=== PATIENT | male | born 1950 | race Caucasian/White ===

== ENCOUNTER 2021-12-15 12:24 | Inpatient (IN) ==
--- NOTE | 2021-12-15 13:05 | XRay Report ---
XR chest 1V portable HISTORY: 71 years-old Male Chest Pain acute atypical chest pain COMPARISON: Chest radiograph 04/13/2021 TECHNIQUE: Portable AP view of the chest FINDINGS: Cardiomediastinal and hilar silhouettes are within normal limits. There is no pneumothorax, pleural e ffusion, airspace consolidation or overt pulmonary edema. The bones of the chest appear grossly intac t. IMPRESSION: No acute process. ACT 112: Negative or not required by law. The above report was generated using voice recognition software. It may contain grammatical, syntax o r spelling errors. Electronically signed by: Arcenio Haywood M.D. 12/15/2021 1:04 PM
[2021-12-15 13:43] LABS: Basophils # (auto) 0.01 K/uL (0-0.2); Basophils % (auto) 0.2 %; Hematocrit (blood only) 47.6 % (42-52); Hemoglobin 16.4 g/dL (14.0-18.0); Immature Granulocytes # (auto) 0.02 K/uL (0.00-0.02); Immature Granulocytes % (auto) 0.3 %; Lymphocytes # (auto) 1.11 K/uL (1.2-3.4); Lymphocytes % (auto) 18.4 %; Mean Corpuscular Hemoglobin 30.3 pg (25-34); Mean Corpuscular Hgb Conc 34.5 g/dL (32-36); Mean Corpuscular Volume 87.8 fL (80-100); Mean Platelet Volume 9.8 fL (7.4-10.4); Monocytes # (auto) 0.94 K/uL (0.11-0.59); Monocytes % (auto) 15.6 %; Neutrophils # (auto) 3.95 K/uL (1.4-6.5); Neutrophils % (auto) 65.5 %; Platelet Count 139 K/uL (130-400); RDW Coefficient of Variation 14.8 % (11.5-14.5); RDW Standard Deviation 47.5 fL (36.4-46.3); Red Blood Count 5.42 M/uL (4.7-6.1); White Blood Count 6.03 K/uL (4.8-10.8)
[2021-12-15] MEDS ORDERED: ALBUT/IPRATROP 3MG/0.5MG NEB 3 ML VIAL NEB STA ×2 (13:44→18:20)
[2021-12-15] MEDS ORDERED: LORazepam 2 MG/1 ML VIAL IV STA (13:44)
[2021-12-15 13:58] LABS: Partial Thromboplastin Ratio 1.6; Prothrombin Time 20.1 Seconds (9.0-12.0)
[2021-12-15 14:21] LABS: Influenza A virus by PCR Negative (Neg); Influenza B virus by PCR Negative (Neg); RSV by PCR Negative (Neg)
[2021-12-15 14:24] LABS: BUN Creatinine Ratio 20.5 (10-20); Calcium 8.8 mg/dl (8.5-10.1); Creatinine Clr Calc Pharmacy 72.1 ml/min; Est GFR (African American) 72.8 ml/min; Est GFR (Non-African American) 62.8 ml/min; Potassium 3.8 mmol/L (3.5-5.1)
--- NOTE | 2021-12-15 14:48 | Electrocardiogram Report ---
Test Reason : Blood Pressure : / mmHG Vent. Rate : 117 BPM Atrial Rate : 468 BPM P-R Int : 000 ms QRS Dur : 088 ms QT Int : 290 ms P-R-T Axes : 000 -28 049 degrees QTc Int : 404 ms Poor data quality, interpretation may be adversely affected Atrial fibrillation with rapid ventricular response Abnormal ECG When compared with ECG of 16-AUG-2021 07:14, Atrial fibrillation has replaced Sinus rhythm Vent. rate has increased BY 55 BPM Confirmed by Jose Nails ([id number]) on 12/15/2021 2:48:21 PM Referred By: Ajay Hamm Confirmed By:Jose Nails
[2021-12-15 14:53] LABS: SARS CoV2 RNA(COVID-19) InHosp POSITIVE (Negative)
--- NOTE | 2021-12-15 16:03 | Emergency Department Note ---
History of Present Illness General Chief Complaint: Illness Stated Complaint: COVID+, SOB, AFIB Time Seen by Provider: 12/15/21 12:35 History of Present Illness Provider Complaint: shortness of breath, cough and chest pain Onset (ago): day(s) (2) Severity: moderate Consistency/Duration: + progressively worsening Maximum Pain Intensity: 1 Relieved By: + rest Exacerbated By: + exertion and + coughing Context: + other (Exposed to family member with COVID-19) Associated symptoms: + chest pain, + cough, + palpitations and + chest congestion; no orthopnea, no polyuria, no hemoptysis, no diaphoresis, no nause a/vomiting or no abdominal pain Related Data Home oxygen amount: none Home Medications Medication Instructions Recorded Confirmed Type levothyroxine 112 mcg tablet 125 mcg PO QAM 10/21/18 12/15/21 History omeprazole 10 mg capsule,delayed 10 mg PO DAILY PRN 08/15/21 12/15/21 History release warfarin 5 mg tablet See Rx Instructions .ROUTE .COMPLEX 08/15/21 12/15/21 History metoprolol succinate 25 mg 25 mg PO BID 12/15/21 12/15/21 History tablet,extended release 24 hr warfarin 5 mg tablet 7.5 mg PO SUTUWETHSA@1630 12/15/21 12/15/21 History Allergies Allergy/AdvReac Type Severity Reaction Status Date / Time Xypeutu-OKX-EmQ Reductase AdvReac Intermediate Unknown Unverified 12/15/21 15:17 Inhibitor [Hyathao-Zpx-Zum Reductase Inhibitor] Past Med/Surg History Medical History Atrial fibrillation CAD (coronary artery disease) Nonobstructive per 2019 cath GERD (gastroesophageal reflux disease) H/O fracture of femur left femur fracture Hearing deficit [place], has bilat hearing aids, does not always use them Hyperlipidemia Hypothyroidism, postsurgical S/p total thyroidectomy secondary to thyroid cancer Ophthalmic migraine Surgical History H/O Achilles tendon repair H/O hand surgery H/O wrist surgery History of cardiac cath 2019, no stents History of repair of ACL History of thyroidectomy, 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 History of total knee replacement bilat TKA's; dates of surgeries unknown Family History Other Heart disease Social History Smoking Status: Former smoker Second Hand Exposure: No; Hx Alcohol Use: Yes (occasionally) Alcohol type: beer Hx Substance Use: No Preferred Language: Senegalese Communication Ability: Effective Rehanger Required: No Beliefs That Will Affect Care: None Current Living Situation: Spouse Feels Safe at Home: Yes Assistive Devices: Glasses and Hearing Aid - Bilateral Review of Systems A total of 10 systems reviewed and were otherwise negative Physical Exam Vital Signs: Vital Signs - 24 hr 12/15/21 12:27 12/15/21 13:18 12/15/21 13:22 Temperature 37 C Temperature Source Temporal Artery Sc an Pulse Rate 104 H 114 H 107 H Pulse Rate [Apical ] 107 H Pulse Rate from Sp O2 Sensor 110 H Respiratory Rate 18 19 18 Respiratory Effort / Characteristics Non-Labored Non-Labored Sponta neous Respiratory Depth Normal Normal Respiratory Patter n Regular Blood Pressure 157/100 H 139/95 Blood Pressure [Ri ght Arm] 135/95 Blood Pressure Anna n 119 109 Blood Pressure Anna n [Right Arm] 108 Blood Pressure Pos ition [Right Arm] Sitting Pulse Oximetry 96 97 95 Oxygen Delivery Me thod Room Air Room Air Sepsis Recent Feve r Within 48 Hours No Sepsis New/Unexpla ined Change in Men alessandra Status No Sepsis Action Take n by Nursing No Action Required 12/15/21 14:30 12/15/21 15:30 Temperature Temperature Source Pulse Rate 126 H 117 H Pulse Rate [Apical ] Pulse Rate from Sp O2 Sensor 109 H Respiratory Rate 16 17 Respiratory Effort / Characteristics Respiratory Depth Respiratory Patter n Blood Pressure Blood Pressure [Ri ght Arm] Blood Pressure Anna n Blood Pressure Anna n [Right Arm] Blood Pressure Pos ition [Right Arm] Pulse Oximetry 94 Oxygen Delivery Me thod Sepsis Recent Feve r Within 48 Hours Sepsis New/Unexpla ined Change in Men alessandra Status Sepsis Action Take n by Nursing Physical Exam: Physical Exam GENERAL: He is oriented to person, place, and time. He appears well-developed and well-nourished. He does not appear distressed. HENT: Exam performed. - Head: Normocephalic and atraumatic. - Right Ear: External ear normal. No mastoid tenderness. - Left Ear: External ear normal. No mastoid tenderness. - Mouth/Throat: The oropharynx is clear and moist. No trismus in the jaw. No dental abscesses or uvula swelling. No oropharyngeal exudate or tonsillar abscesses. EYES: Conjunctivae and EOM are normal. Pupils are equal, round, and reactive to light. Right eye exhibits no discharge. Left eye exhibits no discharge. No scleral icterus. NECK: Normal range of motion. Neck supple. No JVD present. No spinous process tenderness present. No carotid bruit present. No rigidity. No tracheal deviation and normal range of motion present. No Brudzinski's sign and no Kernig's sign noted. CV: Normal rate, irregular rhythm, normal heart sounds and intact distal pulses. There is no peripheral edema. Palpable radial pulses bue. PULM/CHEST: Effort normal and breath sounds normal. No respiratory distress. No stridor. He has no wheezes. He has no rales. - Chest Wall: He exhibits no tenderness. ABD: The abdomen is soft. Bowel sounds are normal. He has no distension. No mass is present. There is no tenderness. There is no rebound, no guarding, no Cox's sign and no tenderness at McBurney's point. Rovsig negative. MUSC/SKEL: Normal range of motion. There is no peripheral edema, tenderness or deformity. LYMPH: No cervical adenopathy. NEURO: He is alert and oriented to person, place, and time. He has normal strength. No cranial nerve deficit or sensory deficit. Coordination and gait normal. GCS eye subscore is 4. GCS verbal subscore is 5. GCS motor subscore is 6. Cerebellar tests wnl. SKIN: Skin is warm and dry. He is not diaphoretic. PSYCH: He has a normal mood and affect. Behavior is normal. Judgment and thought content normal. Course Course 1235: The patient was evaluated in room C9. A complete history and physical exam was performed Cardiac monitoring: An order was placed for continuous cardiac monitoring. The monitor shows a rate of 90-110 with atrial fibrilation rhythm 1345: Nursing reports patient is having increasing difficulty breathing. Patient ordered DuoNeb treatment and Ativan. 1505: Vital signs stable. Labs showed elevated troponin and positive COVID-19 test. Patient is still reporting some dyspnea. INR is therapeutic. Patient will be admitted to the [facility] team discussed case with Sheyla who stated to admit to Dr. Plummer Administered Medications Discontinued Medications Albuterol (Albut/Ipratrop 3mg/0.5mg Neb 3 Ml Vial) 3 ml NEB NOW STA; Protocol Stop: 12/15/21 13:45 Last Admin: 12/15/21 14:16 Dose: 3 ml Documented by: [id number] Lorazepam (Lorazepam 2 Mg/1 Ml Vial) 0.5 mg IV NOW STA Stop: 12/15/21 13:45 Last Admin: 12/15/21 14:16 Dose: 0.5 mg Documented by: [id number] Medical Decision Making Laboratory Data Result diagrams: 12/15/21 13:16 12/15/21 13:16 Lab Results 12/15/21 12/15/21 12/15/21 Range/Units 13:16 13:16 13:16 WBC 6.03 (4.8-10.8) K/uL RBC 5.42 (4.7-6.1) M/uL Hgb 16.4 (14.0-18.0) g/dL Hct 47.6 (42-52) % MCV 87.8 (80-100) fL MCH 30.3 (25-34) pg MCHC 34.5 (32-36) g/dL RDW Std Deviation 47.5 H (36.4-46.3) fL RDW Coeff of Tyra 14.8 H (11.5-14.5) % Plt Count 139 (130-400) K/uL MPV 9.8 (7.4-10.4) fL Immature Gran % (Auto) 0.3 % Neut % (Auto) 65.5 % Lymph % (Auto) 18.4 % [place] % (Auto) 15.6 % Eos % (Auto) 0.0 % Baso % (Auto) 0.2 % Neut # (Auto) 3.95 (1.4-6.5) K/uL Lymph # (Auto) 1.11 L (1.2-3.4) K/uL [place] # (Auto) 0.94 H (0.11-0.59) K/uL Eos # (Auto) 0.00 (0-0.5) K/uL Baso # (Auto) 0.01 (0-0.2) K/uL Immature Gran # (Auto) 0.02 (0.00-0.02) K/uL PT 20.1 H (9.0-12.0) Seconds INR 2.0 H (0.9-1.1) APTT 45.0 H (21.0-31.0) Seconds PTT Ratio 1.6 Sodium 137 (136-145) mmol/L Potassium 3.8 (3.5-5.1) mmol/L Chloride 103 (98-107) mmol/L Carbon Dioxide 25 (21-32) mmol/L Anion Gap 9 (3-11) BUN 24 H (6-23) mg/dl Creatinine 1.17 (0.6-1.4) mg/dl Est Cr Clr Drug Dosing 72.1 ml/min Est GFR ( Amer) 72.8 ml/min Est GFR (Non-Af Amer) 62.8 ml/min BUN/Creatinine Ratio 20.5 H (10-20) Glucose 90 (70-99(Fasting)) mg/dl Calcium 8.8 (8.5-10.1) mg/dl Troponin I High Sens 57.0 H* (0-20) pg/ml Lipase 53 (11-82) U/L SARS-CoV-2 (PCR) (Negative) Influenza Type A (PCR) (Neg) Influenza Type B (PCR) (Neg) RSV (RT-PCR) (Neg) 12/15/21 12/15/21 Range/Units 13:16 14:26 WBC (4.8-10.8) K/uL RBC (4.7-6.1) M/uL Hgb (14.0-18.0) g/dL Hct (42-52) % MCV (80-100) fL MCH (25-34) pg MCHC (32-36) g/dL RDW Std Deviation (36.4-46.3) fL RDW Coeff of Tyra (11.5-14.5) % Plt Count (130-400) K/uL MPV (7.4-10.4) fL Immature Gran % (Auto) % Neut % (Auto) % Lymph % (Auto) % [place] % (Auto) % Eos % (Auto) % Baso % (Auto) % Neut # (Auto) (1.4-6.5) K/uL Lymph # (Auto) (1.2-3.4) K/uL [place] # (Auto) (0.11-0.59) K/uL Eos # (Auto) (0-0.5) K/uL Baso # (Auto) (0-0.2) K/uL Immature Gran # (Auto) (0.00-0.02) K/uL PT (9.0-12.0) Seconds INR (0.9-1.1) APTT (21.0-31.0) Seconds PTT Ratio Sodium (136-145) mmol/L Potassium (3.5-5.1) mmol/L Chloride (98-107) mmol/L Carbon Dioxide (21-32) mmol/L Anion Gap (3-11) BUN (6-23) mg/dl Creatinine (0.6-1.4) mg/dl Est Cr Clr Drug Dosing ml/min Est GFR ( Amer) ml/min Est GFR (Non-Af Amer) ml/min BUN/Creatinine Ratio (10-20) Glucose (70-99(Fasting)) mg/dl Calcium (8.5-10.1) mg/dl Troponin I High Sens 56.2 H* (0-20) pg/ml Lipase (11-82) U/L SARS-CoV-2 (PCR) POSITIVE A* (Negative) Influenza Type A (PCR) Negative (Neg) Influenza Type B (PCR) Negative (Neg) RSV (RT-PCR) Negative (Neg) Imaging Data Radiologist's Impression: Chest X-Ray 12/15/21 12:41 XR chest 1V portable HISTORY: 71 years-old Male Chest Pain acute atypical chest pain COMPARISON: Chest radiograph 04/13/2021 TECHNIQUE: Portable AP view of the chest FINDINGS: Cardiomediastinal and hilar silhouettes are within normal limits. There is no pneumothorax, pleural effusion, airspace consolidation or overt pulmonary edema. The bones of the chest appear grossly intact. IMPRESSION: No acute process. ACT 112: Negative or not required by law. The above report was generated using voice recognition software. It may contain grammatical, syntax or spelling errors. Electronically signed by: Arcenio Haywood M.D. 12/15/2021 1:04 PM ECG Data Interpretation: Atrial fibrillation with a rate of 117. QRS and QTc intervals are within normal limits. No ST elevation or ST depression. MDM Narrative 1235: The patient was evaluated in room C9. A complete history and physical exam was performed Cardiac monitoring: An order was placed for continuous cardiac monitoring. The monitor shows a rate of 90-110 with atrial fibrilation rhythm 1345: Nursing reports patient is having increasing difficulty breathing. Patient ordered DuoNeb treatment and Ativan. 1505: Vital signs stable. Labs showed elevated troponin and positive COVID-19 test. Patient is still reporting some dyspnea. INR is therapeutic. Patient will be admitted to the [facility] team discussed case with Sheyla who stated to admit to Dr. Plummer Impression & Plan COVID-19, Elevated troponin Discharge Plan Visit Data Chief Complaint: Illness Stated Complaint: COVID+, SOB, AFIB Discharge Problem: COVID-19, Elevated troponin Patient Disposition: Admitted As Inpatient Forms Stand Alone Forms: [facility] Prescriptions Prescriptions: No Action levothyroxine 112 mcg tablet 125 mcg PO QAM RF: 0 metoprolol tartrate 25 mg tablet 25 mg PO BID Qty: 60 RF: 0 warfarin 5 mg Tablet See Rx Instructions .ROUTE .COMPLEX RF: 0 omeprazole 10 mg Capsule,Delayed Release(Dr/Ec) 10 mg PO DAILY PRN (Reason: Acid Reflux) RF: 0 Referrals Referrals: Ajay Hamm DO [Primary Care Provider] -
[2021-12-15] MEDS ORDERED: METOPROLOL SUCC 25MG EXT REL TAB PO STA (16:12)
--- NOTE | 2021-12-15 16:12 | History & Physical Report ---
Date of Service December 15, 2021 Assessment & Plan (1) Elevated troponin: (2) SOB (shortness of breath): (3) Atrial fibrillation: (4) COVID-19: Plan: This is a 71-year-old male who has significant past medical history of persistent atrial fibrillation anticoagulated on warfarin, HLD, hypothyroidism, GERD, CKD stage III, history of thyroid cancer, IBS, presents to ED secondary to shortness of breath, chest pain and cough x1 day. Elevated troponin SOB Atrial Fibrillation admit under obs to PCU continue metoprolol and warfarin consult cardiology defer further imaging cards, last echo 04/2021 add prn IV lopressor cycle trops COVID -19 supportive care pt does not meet criteria for treatment Hypothyroidism continue levothyroxine DVT ppx: warfarin, daily INR Dispo: PCU FULL CODE PCP: [facility] Pt was seen and examined in collaboration with Dr. Plummer, please see addendum History of Present Illness Chief Complaint: SOB, Cough, CP x 1 day. Primary Care Provider: Ajay Hamm, DO This is a 71-year-old male who has significant past medical history of persistent atrial fibrillation anticoagulated on warfarin, HLD, hypothyroidism, GERD, CKD stage III, history of thyroid cancer, IBS, presents to ED secondary to shortness of breath, chest pain and cough x1 day. Of significance he did recently have a known COVID exposure. He did have his initial 2 vaccines in October and November 2020, but no booster. He presents today due to complaints of difficult, palpitations, shortness of breath with exertion and chest pain. In ED patient did test positive for SARS-CoV-2. He did not require any supplemental oxygenation. His chest x-ray was negative for any acute cardiopulmonary abnormality. He did have elevated troponin at 56.2. His CBC and CMP was otherwise generally unremarkable. He did have mild elevation in BUN at 24 with improved creatinine than baseline at 1.17. He did not take any medications today. In ED he received albuterol nebulizer treatment as well as IV Ativan. He denies any f/c/s, dizziness, lightheaded, orthopnea, pnd, edema, n/v/d, change in bowel or urinary habits. He has been compliant with his warfarin. INR 2.0 today. He follows with [facility] cardiology was last seen on 11/01/2021. Given his persistent atrial fibrillation despite 4 attempts at cardioversion he has been referred to EP for further recommendations. His last echocardiogram per [facility] was in April 2021 which revealed EF 50%, LA mildly enlarged, mild MR, AR. There was no change from echo performed in 2019. Allergies Allergy/AdvReac Type Severity Reaction Status Date / Time Bxndqqx-UZH-YlM Reductase AdvReac Intermediate Unknown Unverified 12/15/21 15:17 Inhibitor [Gxxspah-Tib-Slp Reductase Inhibitor] Home Medications Medication Instructions Recorded Confirmed Type levothyroxine 112 mcg tablet 125 mcg PO QAM 10/21/18 12/15/21 History omeprazole 10 mg capsule,delayed 10 mg PO DAILY PRN 08/15/21 12/15/21 History release warfarin 5 mg tablet 10 mg PO MOFR@1630 08/15/21 12/15/21 History metoprolol succinate 25 mg 25 mg PO BID 12/15/21 12/15/21 History tablet,extended release 24 hr warfarin 5 mg tablet 7.5 mg PO SUTUWETHSA@1630 12/15/21 12/15/21 History Past Med/Surg History Medical History (Updated 12/15/21 @ 16:18 by Sheyla Yang PA-C) Atrial fibrillation CAD (coronary artery disease) Nonobstructive per 2019 cath GERD (gastroesophageal reflux disease) H/O fracture of femur left femur fracture Hearing deficit [place], has bilat hearing aids, does not always use them Hyperlipidemia Hypothyroidism, postsurgical S/p total thyroidectomy secondary to thyroid cancer Ophthalmic migraine Surgical History H/O Achilles tendon repair H/O hand surgery H/O wrist surgery History of cardiac cath 2019, no stents History of repair of ACL History of thyroidectomy, 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 History of total knee replacement bilat TKA's; dates of surgeries unknown Family History Other Heart disease Social History Smoking Status: Former smoker Second Hand Exposure: No; Hx Alcohol Use: Yes (occasionally) Alcohol type: beer Hx Substance Use: No Preferred Language: French Communication Ability: 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 Plummer addendum for physical exam findings Results & Data Results & Data ([facility]) Vital Signs (Past 12 Hours) Vital Signs Temp Pulse Pulse Resp BP BP Pulse Ox 12/15/21 15:30 117 H 17 94 12/15/21 14:30 126 H 16 12/15/21 13:22 107 H 107 H 18 135/95 95 12/15/21 13:18 114 H 19 139/95 97 12/15/21 12:27 37 C 104 H 18 157/100 H 96 Diagnostic Findings Chest X-Ray 12/15/21 12:41 XR chest 1V portable HISTORY: 71 years-old Male Chest Pain acute atypical chest pain COMPARISON: Chest radiograph 04/13/2021 TECHNIQUE: Portable AP view of the chest FINDINGS: Cardiomediastinal and hilar silhouettes are within normal limits. There is no pneumothorax, pleural effusion, airspace consolidation or overt pulmonary edema. The bones of the chest appear grossly intact. IMPRESSION: No acute process. ACT 112: Negative or not required by law. The above report was generated using voice recognition software. It may contain grammatical, syntax or spelling errors. Electronically signed by: Arcenio Haywood M.D. 12/15/2021 1:04 PM Medications Administered Medication List Discontinued Medications Albuterol (Albut/Ipratrop 3mg/0.5mg Neb 3 Ml Vial) 3 ml NEB NOW STA; Protocol Stop: 12/15/21 13:45 Last Admin: 12/15/21 14:16 Dose: 3 ml Documented by: [id number] Lorazepam (Lorazepam 2 Mg/1 Ml Vial) 0.5 mg IV NOW STA Stop: 12/15/21 13:45 Last Admin: 12/15/21 14:16 Dose: 0.5 mg Documented by: [id number] ECG Rate (beats per minute): 117 Rhythm: atrial fibrillation COVID-19 Results Results COVID-19 Adm Lab Results: RBC 5.42 M/uL (4.7-6.1) 12/15/21 WBC 6.03 K/uL (4.8-10.8) 12/15/21 Hgb 16.4 g/dL (14.0-18.0) 12/15/21 Hct 47.6 % (42-52) 12/15/21 Plt Count 139 K/uL (130-400) 12/15/21 Neutrophils (%) (Auto) 65.5 % 12/15/21 Lymphocytes (%) (Auto) 18.4 % 12/15/21 Monocytes # (Auto) 0.94 K/uL (0.11-0.59) H 12/15/21 Eosinophils # (Auto) 0.00 K/uL (0-0.5) 12/15/21 Immature Granulocyte % (Auto) 0.3 % 12/15/21 Neutrophils # (Auto) 3.95 K/uL (1.4-6.5) 12/15/21 Lymphocytes # (Auto) 1.11 K/uL (1.2-3.4) L 12/15/21 Monocytes # (Auto) 0.94 K/uL (0.11-0.59) H 12/15/21 Eosinophils # (Auto) 0.00 K/uL (0-0.5) 12/15/21 Basophils # (Auto) 0.01 K/uL (0-0.2) 12/15/21 Immature Granulocyte # (Auto) 0.02 K/uL (0.00-0.02) 12/15/21 Na 137 mmol/L (136-145) 12/15/21 K 3.8 mmol/L (3.5-5.1) 12/15/21 Cl 103 mmol/L (98-107) 12/15/21 CO2 25 mmol/L (21-32) 12/15/21 Anion Gap 9 (3-11) 12/15/21 BUN 24 mg/dl (6-23) H 12/15/21 Creatinine 1.17 mg/dl (0.6-1.4) 12/15/21 BUN/Creatinine Ratio 20.5 (10-20) H 12/15/21 Glucose Level 90 mg/dl (70-99(Fasting)) 12/15/21 Ca 8.8 mg/dl (8.5-10.1) 12/15/21 PTT 45.0 Seconds (21.0-31.0) H 12/15/21 INR 2.0 (0.9-1.1) H 12/15/21 COVID-19 PCR POSITIVE (Negative) A* 12/15/21 Influenza Virus Type A (PCR) Negative (Neg) 12/15/21 Influenza Virus Type B (PCR) Negative (Neg) 12/15/21 Chest X-Ray 12/15/21 Code Status & VTE Plan Code Status FULL CODE VTE Prophylaxis Plan VTE Prophylaxis will be ordered: No Supervising Physician Co-Signing Physician Notes 71 yo M with PMH of persistent A. fib on warfarin, hypothyroidism, GERD, CKD stage III, history of thyroid cancer, IBS presented 5/5 to ED with c/o inability to fall asleep complicated by feeling of heart racing and SOB since last 2 days. 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 Also complains of bloating sensation, and inability to sleep d/t palpitation & SOB since the same duration. Pt is tested positive for COVID in the ED, no prior h/o COVID, had received 2 Pfizer vaccine last year (not interested in booster vaccine). Pt on RA and stable. He states his bloating sensation is improved by tums. He also complains of intermittent palpitation a/w SOB making him anxious and unable to sleep since last year. Afib rvr, COVID 19 infection, Indigestion: Labs reviewed, fairly wnl except for mildly elevated trops likely 2/2 Afib rvr Admitting EKG reviewed, afib rvr noted. Cardiology consult for A. fib RVR. Monitor/replete electrolytes, incentive spirometer, trend trop, ?? ECHO, Cardio consult. continue w/ home meds, tums. Upon Exam GENERAL: Alert and oriented x3. NAD, on RA. HEENT: No pallor, no icterus. Pupils equal, round and reactive to light. Oral mucosa moist. NECK: No JVD, no neck masses. HEART: S1 and S2 heard. irregular and tachycardic rate and rhythm. No murmur, no gallop. RESPIRATORY SYSTEM: Normal AP diameter. No accessory muscle use. No wheezing, no crackles. ABDOMEN: Soft, bowel sounds present, nontender, no distention. CENTRAL NERVOUS SYSTEM: No facial droop. Speech is clear. Obeys simple commands. Moves extremities. EXTREMITIES: No edema, no erythema seen. I have seen and examined the patient and have discussed the case with the provider above. I agree with the assessment and plan as stated.
[2021-12-15] MEDS ORDERED: CALCIUM CARBONATE 500 MG CHEWABLE TAB PO PRN (16:20)
[2021-12-15] MEDS ORDERED: LORazepam 0.5 MG TAB PO STA (18:20)
[2021-12-15] MEDS ORDERED: ONDANSETRON INJ 2 MG/ML 2 ML VIAL IV PRN (19:08)
[2021-12-15] MEDS ORDERED: POLYETHYLENE (MIRALAX) 17 GM PACK PO PRN (19:08)
[2021-12-15] MEDS ORDERED: METOPROLOL TARTRATE 1 MG/ML VIAL IV PRN (19:08)
[2021-12-15] MEDS ORDERED: BENZONATATE 100 MG CAPSULE PO PRN (19:08)
[2021-12-15] MEDS ORDERED: MAGNESIUM HYDROXIDE SUSP 30 ML UDC PO PRN (19:08)
[2021-12-15] MEDS ORDERED: guaiFENesin 600 MG TABCR PO PRN (19:08)
[2021-12-15] MEDS ORDERED: ALBUTEROL HFA 8 GM INHALER INH PRN (19:08)
[2021-12-15] MEDS ORDERED: ALUMINUM/MAGNESIUM SUSP 30 ML UDC PO PRN (19:08)
[2021-12-15] MEDS: WARFARIN SOD 7.5 MG TAB PO SCH (21:06)
[2021-12-15] MEDS: METOPROLOL SUCC 25MG EXT REL TAB PO SCH (21:07)
[2021-12-16] MEDS: ACETAMINOPHEN 325 MG TAB PO PRN (00:17)
--- NOTE | 2021-12-16 02:13 | Communication Note ---
Date of Service: December 16, 2021 Notified by RN of patient DNR wishes stated upon arrival at the floor. Advanced directive personally confirmed with patient.
[2021-12-16 02:35] LABS: Hematocrit (blood only) 45.6 % (42-52); Hemoglobin 15.7 g/dL (14.0-18.0); Mean Corpuscular Hemoglobin 30.1 pg (25-34); Mean Corpuscular Hgb Conc 34.4 g/dL (32-36); Mean Corpuscular Volume 87.4 fL (80-100); Mean Platelet Volume 9.3 fL (7.4-10.4); Platelet Count 123 K/uL (130-400); RDW Coefficient of Variation 14.6 % (11.5-14.5); RDW Standard Deviation 46.6 fL (36.4-46.3); Red Blood Count 5.22 M/uL (4.7-6.1); White Blood Count 6.17 K/uL (4.8-10.8)
[2021-12-16 02:50] LABS: Prothrombin Time 20.9 Seconds (9.0-12.0)
[2021-12-16 02:58] LABS: BUN Creatinine Ratio 20.7 (10-20); Calcium 8.3 mg/dl (8.5-10.1); Est GFR (African American) 77.6 ml/min; Est GFR (Non-African American) 66.9 ml/min; Magnesium 1.8 mg/dl (1.7-2.4); Potassium 3.5 mmol/L (3.5-5.1)
[2021-12-16] MEDS: LEVOTHYROXINE SODIUM 125 MCG TABLET PO SCH (05:46)
[2021-12-16] MEDS: METOPROLOL SUCC 25MG EXT REL TAB PO SCH ×2 (08:01→20:42)
[2021-12-16] MEDS ORDERED: POTASSIUM CHLORIDE CRTAB 20 MEQ TABCR PO STA (09:36)
--- NOTE | 2021-12-16 09:57 | Cardiology Consultation ---
Date of Consultation December 16, 2021 Assessment & Plan (1) Atrial fibrillation: (2) SOB (shortness of breath): (3) COVID-19: (4) Elevated troponin: 71-year-old patient admitted with COVID-19 infection, rapid A. fib, and mildly elevated troponin. Patient without chest discomfort or ECG changes to suggest acute coronary syndrome. I suspect the troponin is secondary to demand ischemia in the setting of rapid A. fib, acute COVID-19 infection. He is appropriately anticoagulated. Recommend titration of Toprol-XL to 75 mg daily. Monitor telemetry. Supportive care/treatment of COVID-19 as per internal medicine. Further risk stratification with repeat exercise stress echocardiography post discharge when patient has recovered from COVID-19 infection. History of Present Illness Reason for Consultation: Atrial fibrillation with rapid ventricular response Requesting Physician: Dr. Singh Attending Physician: Nam Singh MD History of Present Illness 77-year-old patient presents to ER with a chief complaint of "illness". Reporting shortness of breath, cough, and chest discomfort. Carries history of chronic atrial fibrillation and nonobstructive coronary disease. ECG on admission demonstrate atrial fibrillation with borderline rapid ventricular response. INR therapeutic. Patient reports abdominal discomfort, palpitations, of breath prior to admission. States "my A. fib goes crazy when I am sick". Overnight he developed diarrhea. Denies chest discomfort. No dyspnea at rest. Denies orthopnea, PND, or edema. Heart rate is mildly elevated since admission. Allergies Allergy/AdvReac Type Severity Reaction Status Date / Time Kttqoir-JWU-ElU Reductase AdvReac Intermediate Unknown Unverified 12/15/21 15:17 Inhibitor [Fqcpoix-Ght-Sui Reductase Inhibitor] Home Medications Medication Instructions Recorded Confirmed Type levothyroxine 112 mcg tablet 125 mcg PO QAM 10/21/18 12/15/21 History omeprazole 10 mg capsule,delayed 10 mg PO DAILY PRN 08/15/21 12/15/21 History release warfarin 5 mg tablet 10 mg PO MOFR@1630 08/15/21 12/15/21 History metoprolol succinate 25 mg 25 mg PO BID 12/15/21 12/15/21 History tablet,extended release 24 hr warfarin 5 mg tablet 7.5 mg PO SUTUWETHSA@1630 12/15/21 12/15/21 History Patient History Medical History Atrial fibrillation CAD (coronary artery disease) Nonobstructive per 2019 cath GERD (gastroesophageal reflux disease) H/O fracture of femur left femur fracture Hearing deficit [place], has bilat hearing aids, does not always use them Hyperlipidemia Hypothyroidism, postsurgical S/p total thyroidectomy secondary to thyroid cancer Ophthalmic migraine Surgical History H/O Achilles tendon repair H/O hand surgery H/O wrist surgery History of cardiac cath 2019, no stents History of repair of ACL History of thyroidectomy, 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 History of total knee replacement bilat TKA's; dates of surgeries unknown Family History Other Heart disease Social History Smoking Status: Former smoker Second Hand Exposure: No; Do You Dip or Chew Tobacco: No; Tobacco Cessation Education Requested by Patient: No Hx Alcohol Use: No Hx Substance Use: No Preferred Language: Guyanese Communication Ability: Effective Shake Out Worker Required: No Beliefs That Will Affect Care: None Current Living Situation: Spouse Current Living Situation Comment: home with Other Information That Helps Us Care for You: No Feels Safe at Home: Yes Safety Concerns: Feels Safe At This Time Assistive Devices: Cane, Crutches and Walker Review of Systems Review of Systems: All systems reviewed & are unremarkable except as noted in Subjective Physical Exam Constitutional: well nourished; no acute distress Respiratory: no respiratory distress, no labored breathing and no retractions Auscultation: lungs clear to auscultation bilaterally; no crackles, no rales, no rhonchi and no wheezes Cardiovascular: Rate/Rhythm: + tachycardic and + irregularly irregular Heart Sounds: normal S1 and normal S2; no murmur Vessels: no JVD and no carotid bruit Extremities: no edema Gastrointestinal (Abdomen): Inspection/Auscultation: abdomen normal to inspection and normal bowel sounds; abdomen not distended Percussion/Palpation: abdomen soft; abdomen nontender, no guarding and abdomen not rigid Neurologic: CN's II-XI intact bilaterally and moves all extremities Motor/Sensory: no tremor Psychiatric: A+Ox3, euthymic affect Results & Data ([facility]) Vital Signs (Past 12 Hours) Vital Signs Temp Pulse Pulse Pulse Resp BP Pulse Ox 12/16/21 07:47 36.8 C 111 H 13 135/89 98 12/16/21 07:01 93 H 12/16/21 02:52 36.8 C 103 H 17 115/78 99 12/16/21 02:38 109 H 12/16/21 00:04 37.0 C 107 H 18 133/91 98 12/15/21 23:14 118 H 16 98
[2021-12-16] MEDS: MAGNESIUM SULFATE / D5W 1 GM/100 ML BAG IV SCH ×2 (10:09→12:09)
[2021-12-16] MEDS: SIMETHICONE 80 MG CHEW PO PRN (12:08)
[2021-12-16 12:46] LABS: Adenovirus F 40/41 PCR Not Detected (NotDetected); Astrovirus PCR Not Detected (NotDetected); Campylobacter PCR Not Detected (NotDetected); Clostridium diff Toxin A/B PCR Not Detected (NotDetected); Cryptosporidium PCR Not Detected (NotDetected); Cyclospora cayetanensis PCR Not Detected (NotDetected); Entamoeba histolytica PCR Not Detected (NotDetected); Enteroaggregative E.coli(EAEC) Not Detected (NotDetected); Enteropathogenic E.coli (EPEC) Not Detected (NotDetected); Enterotoxigenic E.coli (ETEC) Not Detected (NotDetected); Giardia lamblia PCR Not Detected (NotDetected); Norovirus GI/GII PCR Not Detected (NotDetected); Plesiomonas shigelloides PCR Not Detected (NotDetected); Rotavirus A PCR Not Detected (NotDetected); Salmonella PCR Not Detected (NotDetected); Sapovirus PCR Not Detected (NotDetected); Shiga-like Toxin E.coli (STEC) Not Detected (NotDetected); Shigella/Enteroinvasive E.coli Not Detected (NotDetected); Vibrio cholerae PCR Not Detected (NotDetected); Vibrio species PCR Not Detected (NotDetected); Yersinia enterocolitica PCR Not Detected (NotDetected)
[2021-12-16] MEDS ORDERED: FAMOTIDINE 10 MG TABLET PO ONE (15:30)
[2021-12-16] MEDS ORDERED: WARFARIN SOD 10 MG TAB PO SCH (16:30)
[2021-12-16] MEDS ORDERED: LOPERAMIDE HCL 2 MG CAP PO PRN (16:43)
--- NOTE | 2021-12-16 16:48 | Hospitalist Progress Note ---
Date of Service December 16, 2021 Assessment & Plan (1) Elevated troponin: (2) SOB (shortness of breath): (3) Atrial fibrillation: (4) COVID-19: Plan: This is a 71-year-old male who has significant past medical history of persistent atrial fibrillation anticoagulated on warfarin, HLD, hypothyroidism, GERD, CKD stage III, history of thyroid cancer, IBS, presents to ED secondary to shortness of breath, chest pain and cough x1 day. Atrial Fibrillation with RVR Appreciate cardiology input, increase BB to toprol 75mg daily continue coumadin, INR is therapeutic currently COVID -19 Associated with GI symptoms, no respiratory illness supportive management Diarrhea -related to covid 19 -stool PCR negative -imodium PRN Epigastric discomfort -Likely NSAIDs induced gastritis -no evidence of GIB currently, will monitor -s/p pepcid, start Protonix Hypothyroidism continue levothyroxine DVT ppx: Therapeutic on warfarin currently Admission and Anticipated Discharge Date Admission Date: December 15, 2021 Subjective Denies chest pain, shortness of breath Ongoing loose watery diarrhea (brown, non bloody) Reports epigastric "gas" pain intermittent which then makes it difficult to take deep breaths Admits to taking ibuprofen for about 2 days prior to coming to hospital Physical Exam Physical Exam: Appears well, no acute distress, non toxic Respiratory: breathing comfortably on room air, no wheezing/rhonchi/rales Cardiovascular: irregular, HR (90-100 on telemetry), no murmurs/rubs/gallops Gastrointestinal (Abdomen): soft, non tender currently Musculoskeletal: no edema, no cyanosis or clubbing Results & Data Results & Data ([facility]) Vital Signs (Past 12 Hours) Vital Signs Temp Pulse Pulse Pulse Resp BP Pulse Ox 12/16/21 15:16 109 H 12/16/21 14:03 36.6 C 80 18 133/89 97 12/16/21 12:02 36.9 C 86 18 114/73 99 12/16/21 07:47 36.8 C 111 H 13 135/89 98 12/16/21 07:01 93 H Laboratory Results Short CBC 12/16/21 Range/Units 02:20 WBC 6.17 (4.8-10.8) K/uL Hgb 15.7 (14.0-18.0) g/dL Hct 45.6 (42-52) % Plt Count 123 L (130-400) K/uL BMP 12/16/21 02:20 Sodium 135 L Potassium 3.5 Chloride 103 Carbon Dioxide 23 BUN 23 Creatinine 1.11 Glucose 87 Calcium 8.3 L Medications Administered Current Inpatient Medications Acetaminophen (Acetaminophen 325 Mg Tab) 650 mg PO Q4H PRN PRN Reason: Pain or Fever Stop: 01/14/22 19:07 Last Admin: 12/16/21 00:17 Dose: 650 mg Documented by: Al Hydrox/Mg Hydrox/Simethicone (Aluminum/Magnesium Susp 30 Ml Udc) 15 ml PO Q4H PRN PRN Reason: Dyspepsia Stop: 01/14/22 19:07 Albuterol (Albuterol Hfa 8 Gm Inhaler) 2 puffs INH Q6H PRN PRN Reason: SOB/Wheezing Stop: 01/14/22 19:07 Benzonatate (Benzonatate 100 Mg Capsule) 100 mg PO TID PRN PRN Reason: Cough Stop: 01/14/22 19:07 Calcium Carbonate (Calcium Carbonate 500 Mg Chewable Tab) 1,000 mg PO BID PRN PRN Reason: Indigestion Stop: 01/14/22 16:19 Guaifenesin (Guaifenesin 600 Mg Tabcr) 600 mg PO Q12 PRN PRN Reason: cough Stop: 01/14/22 19:07 Levothyroxine Sodium (Levothyroxine Sodium 125 Mcg Tablet) 125 mcg PO DAILYBB [facility] Stop: 01/15/22 06:29 Last Admin: 12/16/21 05:46 Dose: 125 mcg Documented by: Loperamide HCl (Loperamide Hcl 2 Mg Cap) 2 mg PO Q4 PRN PRN Reason: diarrhea Stop: 01/15/22 16:42 Magnesium Hydroxide (Magnesium Hydroxide Susp 30 Ml Udc) 30 ml PO Q12H PRN PRN Reason: Constipation Stop: 01/14/22 19:07 Metoprolol Succinate (Metoprolol Succ 25mg Ext Rel Tab) 25 mg PO BID [facility] Stop: 12/17/21 08:59 Last Admin: 12/16/21 08:01 Dose: 25 mg Documented by: Metoprolol Succinate (Metoprolol Succ 25mg Ext Rel Tab) 75 mg PO QAM [facility] Stop: 01/16/22 08:59 Metoprolol Tartrate (Metoprolol Tartrate 1 Mg/Ml Vial) 5 mg IV Q4 PRN PRN Reason: Tachycardia Stop: 01/14/22 19:07 Ondansetron HCl (Ondansetron Inj 2 Mg/Ml 2 Ml Vial) 4 mg IV Q6H PRN PRN Reason: Nausea Stop: 01/14/22 19:07 Pantoprazole Sodium (Pantoprazole 40 Mg Tab) 40 mg PO [facility] Stop: 01/16/22 08:59 Polyethylene Glycol (Polyethylene (Miralax) 17 Gm Pack) 17 gm PO DAILY PRN PRN Reason: Constipation Stop: 01/14/22 19:07 Simethicone (Simethicone 80 Mg Chew) 80 mg PO Q6H PRN PRN Reason: Gas or Constipation Stop: 01/15/22 11:38 Last Admin: 12/16/21 12:08 Dose: 80 mg Documented by: Warfarin Sodium (Warfarin Sod 10 Mg Tab) 10 mg PO MOFR@1630 [facility] Stop: 01/15/22 16:29 Warfarin Sodium (Warfarin Sod 7.5 Mg Tab) 7.5 mg PO SUTUWETHSA@1630 [facility] Stop: 01/14/22 16:29 Last Admin: 12/15/21 21:06 Dose: Not Given Documented by:
[2021-12-17] MEDS: SIMETHICONE 80 MG CHEW PO PRN (00:38)
[2021-12-17] MEDS: ACETAMINOPHEN 325 MG TAB PO PRN ×2 (03:07→20:58)
[2021-12-17] MEDS: LEVOTHYROXINE SODIUM 125 MCG TABLET PO SCH (05:58)
[2021-12-17] MEDS: METOPROLOL SUCC 25MG EXT REL TAB PO SCH (07:38)
[2021-12-17] MEDS: PANTOprazole 40 MG TAB PO SCH (07:38)
--- NOTE | 2021-12-17 07:39 | Electrocardiogram Report ---
Test Reason : Blood Pressure : / mmHG Vent. Rate : 098 BPM Atrial Rate : 101 BPM P-R Int : 000 ms QRS Dur : 090 ms QT Int : 364 ms P-R-T Axes : 000 -50 041 degrees QTc Int : 464 ms Atrial fibrillation Left axis deviation Inferior infarct , age undetermined Abnormal ECG When compared with ECG of 15-DEC-2021 13:17, No significant change was found Confirmed by Jose Nails ([id number]) on 12/17/2021 7:39:22 AM Referred By: Ajay Hamm Confirmed By:Jose Nails
[2021-12-17 09:23] LABS: INR 2.2 (0.9-1.1); Prothrombin Time 22.2 Seconds (9.0-12.0)
[2021-12-17 09:40] LABS: Albumin Globulin Ratio 1.6 (0.9-2); Albumin Level 3.9 gm/dl (3.4-5.0); BUN Creatinine Ratio 19.6 (10-20); Bilirubin,Total 1.3 mg/dl (0.2-1.0); Calcium 8.8 mg/dl (8.5-10.1); Creatinine Clr Calc Pharmacy 82.7 ml/min; Est GFR (African American) 85.9 ml/min; Est GFR (Non-African American) 74.1 ml/min; Globulin 2.5 gm/dl (2.5-4.0); Total Protein 6.4 gm/dl (6.0-8.3)
--- NOTE | 2021-12-17 12:41 | XRay Report ---
XR chest 1V portable HISTORY: 71 years-old Male SOB in setting of COVID-19 acute shortness of breath. COMPARISON: Chest radiograph 12/15/2021 TECHNIQUE: Portable AP view of the chest FINDINGS: The cardiac silhouette is upper limits of normal in size. No pneumothorax, pleural effusion, airspace consolidation or overt pulmonary edema. The bones of the chest appear grossly intact. IMPRESSION: No acute process. ACT 112: Negative or not required by law. The above report was generated using voice recognition software. It may contain grammatical, syntax o r spelling errors. Electronically signed by: Arcenio Haywood M.D. 12/17/2021 12:39 PM
[2021-12-17 13:39] LABS: Hematocrit (blood only) 50.6 % (42-52); Hemoglobin 17.6 g/dL (14.0-18.0); Mean Corpuscular Hemoglobin 30.2 pg (25-34); Mean Corpuscular Hgb Conc 34.8 g/dL (32-36); Mean Corpuscular Volume 86.9 fL (80-100); Mean Platelet Volume 10.2 fL (7.4-10.4); Platelet Count 141 K/uL (130-400); RDW Coefficient of Variation 14.6 % (11.5-14.5); RDW Standard Deviation 46.5 fL (36.4-46.3); Red Blood Count 5.82 M/uL (4.7-6.1); White Blood Count 5.64 K/uL (4.8-10.8)
[2021-12-17 13:50] LABS: C Reactive Protein 0.88 mg/dl (0-0.5)
[2021-12-17 14:04] LABS: Ferritin 834.2 ng/ml (8-388)
--- NOTE | 2021-12-17 16:03 | Hospitalist Progress Note ---
Date of Service December 17, 2021 Assessment & Plan (1) Elevated troponin: (2) SOB (shortness of breath): (3) Atrial fibrillation: (4) COVID-19: Plan: This is a 71-year-old male who has significant past medical history of persistent atrial fibrillation anticoagulated on warfarin, HLD, hypothyroidism, GERD, CKD stage III, history of thyroid cancer, IBS, presents to ED secondary to shortness of breath, chest pain and cough x1 day. Atrial Fibrillation with RVR Appreciate cardiology input, increase BB to toprol 75mg daily continue coumadin, INR is therapeutic currently COVID -19 Associated with GI symptoms, no respiratory illness supportive management Diarrhea -related to covid 19 -stool PCR negative -imodium PRN Epigastric discomfort -Likely NSAIDs induced gastritis -no evidence of GIB currently, will monitor -s/p pepcid, continue Protonix Hypothyroidism continue levothyroxine DVT ppx: Therapeutic on warfarin currently Likely discharge home tomorrow Admission and Anticipated Discharge Date Admission Date: December 16, 2021 Subjective Feels better, less gas pain Denies chest pain or shortness of breath Reports post nasal drip intermittently with associated cough (chronic) Improved appetite Feels very tired which he attributes to his BB dose increase Physical Exam Physical Exam: Appears well, no acute distress, non toxic Respiratory: breathing comfortably on room air, no wheezing/rhonchi Cardiovascular: irregular but not rapid, no murmurs/rubs Gastrointestinal (Abdomen): soft, non tender Musculoskeletal: no edema Neurologic: awake, alert, spontaneously moving extremities Results & Data Results & Data ([facility]) Vital Signs (Past 12 Hours) Vital Signs Temp Pulse Pulse Pulse Resp BP Pulse Ox 12/17/21 14:48 86 12/17/21 11:45 36.7 C 99 H 16 117/80 98 12/17/21 07:57 110 H 12/17/21 07:09 36.5 C 109 H 17 117/80 95 Laboratory Results Short CBC 12/17/21 Range/Units 08:06 WBC 5.64 (4.8-10.8) K/uL Hgb 17.6 (14.0-18.0) g/dL Hct 50.6 (42-52) % Plt Count 141 (130-400) K/uL BMP 12/17/21 08:06 Sodium 135 L Potassium 4.0 Chloride 103 Carbon Dioxide 25 BUN 20 Creatinine 1.02 Glucose 83 Calcium 8.8 Liver Function 12/17/21 Range/Units 08:06 Total Bilirubin 1.3 H (0.2-1.0) mg/dl AST 40 H (13-39) U/L ALT 31 (7-52) U/L Alkaline Phosphatase 50 (34-104) U/L Albumin 3.9 (3.4-5.0) gm/dl Medications Administered Current Inpatient Medications Acetaminophen (Acetaminophen 325 Mg Tab) 650 mg PO Q4H PRN PRN Reason: Pain or Fever Stop: 01/14/22 19:07 Last Admin: 12/17/21 03:07 Dose: 650 mg Documented by: Al Hydrox/Mg Hydrox/Simethicone (Aluminum/Magnesium Susp 30 Ml Udc) 15 ml PO Q4H PRN PRN Reason: Dyspepsia Stop: 01/14/22 19:07 Last Admin: 12/17/21 03:07 Dose: 15 ml Documented by: Albuterol (Albuterol Hfa 8 Gm Inhaler) 2 puffs INH Q6H PRN PRN Reason: SOB/Wheezing Stop: 01/14/22 19:07 Benzonatate (Benzonatate 100 Mg Capsule) 100 mg PO TID PRN PRN Reason: Cough Stop: 01/14/22 19:07 Calcium Carbonate (Calcium Carbonate 500 Mg Chewable Tab) 1,000 mg PO BID PRN PRN Reason: Indigestion Stop: 01/14/22 16:19 Last Admin: 12/16/21 20:41 Dose: 1,000 mg Documented by: Fluticasone Propionate (Fluticasone Propionate Na Spr 16 Gm Btl) 1 sprays NA BID JEFFY Stop: 01/16/22 20:59 Guaifenesin (Guaifenesin 600 Mg Tabcr) 600 mg PO Q12 PRN PRN Reason: cough Stop: 01/14/22 19:07 Levothyroxine Sodium (Levothyroxine Sodium 125 Mcg Tablet) 125 mcg PO DAILYBB [facility] Stop: 01/15/22 06:29 Last Admin: 12/17/21 05:58 Dose: 125 mcg Documented by: Loperamide HCl (Loperamide Hcl 2 Mg Cap) 2 mg PO Q4 PRN PRN Reason: diarrhea Stop: 01/15/22 16:42 Magnesium Hydroxide (Magnesium Hydroxide Susp 30 Ml Udc) 30 ml PO Q12H PRN PRN Reason: Constipation Stop: 01/14/22 19:07 Metoprolol Succinate (Metoprolol Succ 25mg Ext Rel Tab) 75 mg PO [facility] Stop: 01/16/22 08:59 Last Admin: 12/17/21 07:38 Dose: 75 mg Documented by: Metoprolol Tartrate (Metoprolol Tartrate 1 Mg/Ml Vial) 5 mg IV Q4 PRN PRN Reason: Tachycardia Stop: 01/14/22 19:07 Last Admin: 12/17/21 03:08 Dose: 5 mg Documented by: Ondansetron HCl (Ondansetron Inj 2 Mg/Ml 2 Ml Vial) 4 mg IV Q6H PRN PRN Reason: Nausea Stop: 01/14/22 19:07 Pantoprazole Sodium (Pantoprazole 40 Mg Tab) 40 mg PO [facility] Stop: 01/16/22 08:59 Last Admin: 12/17/21 07:38 Dose: 40 mg Documented by: Polyethylene Glycol (Polyethylene (Miralax) 17 Gm Pack) 17 gm PO DAILY PRN PRN Reason: Constipation Stop: 01/14/22 19:07 Simethicone (Simethicone 80 Mg Chew) 80 mg PO Q6H PRN PRN Reason: Gas or Constipation Stop: 01/15/22 11:38 Last Admin: 12/17/21 00:38 Dose: 80 mg Documented by: Warfarin Sodium (Warfarin Sod 10 Mg Tab) 10 mg PO MOFR@1630 [facility] Stop: 01/15/22 16:29 Last Admin: 12/16/21 16:46 Dose: 10 mg Documented by: Warfarin Sodium (Warfarin Sod 7.5 Mg Tab) 7.5 mg PO SUTUWETHSA@1630 [facility] Stop: 01/14/22 16:29 Last Admin: 12/15/21 21:06 Dose: Not Given Documented by:
[2021-12-17] MEDS: WARFARIN SOD 7.5 MG TAB PO SCH (17:20)
[2021-12-17] MEDS: FLUTICASONE PROPIONATE NA SPR 16 GM BTL SCH (20:34)
[2021-12-18] MEDS: LEVOTHYROXINE SODIUM 125 MCG TABLET PO SCH (03:17)
[2021-12-18] MEDS: ACETAMINOPHEN 325 MG TAB PO PRN (03:17)
[2021-12-18 05:08] LABS: INR 2.4 (0.9-1.1); Prothrombin Time 24.6 Seconds (9.0-12.0)
[2021-12-18 05:19] LABS: Albumin Globulin Ratio 1.5 (0.9-2); Albumin Level 3.7 gm/dl (3.4-5.0); BUN Creatinine Ratio 23.2 (10-20); Bilirubin,Total 1.1 mg/dl (0.2-1.0); Calcium 8.5 mg/dl (8.5-10.1); Creatinine Clr Calc Pharmacy 75.3 ml/min; Est GFR (African American) 76.7 ml/min; Est GFR (Non-African American) 66.2 ml/min; Globulin 2.4 gm/dl (2.5-4.0); Total Protein 6.1 gm/dl (6.0-8.3)
[2021-12-18] MEDS: FLUTICASONE PROPIONATE NA SPR 16 GM BTL SCH (07:16)
[2021-12-18] MEDS: PANTOprazole 40 MG TAB PO SCH (08:24)
[2021-12-18] MEDS: METOPROLOL SUCC 25MG EXT REL TAB PO SCH (08:24)
--- NOTE | 2021-12-18 16:54 | Hospitalist Progress Note ---
Date of Service December 18, 2021 Assessment & Plan (1) Elevated troponin: (2) SOB (shortness of breath): (3) Atrial fibrillation: (4) COVID-19: Plan: This is a 71-year-old male who has significant past medical history of persistent atrial fibrillation anticoagulated on warfarin, HLD, hypothyroidism, GERD, CKD stage III, history of thyroid cancer, IBS, presents to ED secondary to shortness of breath, chest pain and cough x1 day. Atrial Fibrillation with RVR Appreciate cardiology input, increase BB to toprol 75mg daily continue coumadin, INR is therapeutic currently COVID -19 Associated with GI symptoms, no respiratory illness supportive management Diarrhea -related to covid 19 -stool PCR negative -imodium PRN Epigastric discomfort -Likely NSAIDs induced gastritis -no evidence of GIB currently, will monitor -s/p pepcid, continue Protonix Hypothyroidism continue levothyroxine DVT ppx: Therapeutic on warfarin currently Likely discharge home tomorrow Admission and Anticipated Discharge Date Admission Date: December 16, 2021 Results & Data Results & Data ([facility]) Vital Signs (Past 12 Hours) Vital Signs Temp Pulse Pulse Pulse Resp BP Pulse Ox 12/18/21 15:22 90 12/18/21 15:20 36.4 C L 92 H 97 H 18 127/87 98 12/18/21 11:48 36.4 C L 92 H 18 127/87 98 12/18/21 07:44 36.8 C 97 H 18 118/81 98 12/18/21 07:00 86
--- NOTE | 2021-12-18 16:56 | Discharge Summary ---
Date of Service December 18, 2021 Admission HPI Per Admitting Provider This is a 71-year-old male who has significant past medical history of persistent atrial fibrillation anticoagulated on warfarin, HLD, hypothyroidism, GERD, CKD stage III, history of thyroid cancer, IBS, presents to ED secondary to shortness of breath, chest pain and cough x1 day. Of significance he did recently have a known COVID exposure. He did have his initial 2 vaccines in October and November 2020, but no booster. He presents today due to complaints of difficult, palpitations, shortness of breath with exertion and chest pain. In ED patient did test positive for SARS-CoV-2. He did not require any supplemental oxygenation. His chest x-ray was negative for any acute cardiopulmonary abnormality. He did have elevated troponin at 56.2. His CBC and CMP was otherwise generally unremarkable. He did have mild elevation in BUN at 24 with improved creatinine than baseline at 1.17. He did not take any medications today. In ED he received albuterol nebulizer treatment as well as IV Ativan. He denies any f/c/s, dizziness, lightheaded, orthopnea, pnd, edema, n/v/d, change in bowel or urinary habits. He has been compliant with his warfarin. INR 2.0 today. He follows with [facility] cardiology was last seen on 11/01/2021. Given his persistent atrial fibrillation despite 4 attempts at cardioversion he has been referred to EP for further recommendations. His last echocardiogram per [facility] was in April 2021 which revealed EF 50%, LA mildly enlarged, mild MR, AR. There was no change from echo performed in 2019. Principal Diagnosis Covid 19 Infection Diarrhea related to Covid 19 Atrial Fibrillation with RVR Discharge Exam Appears well nourished, younger than stated age, non toxic appearing Respiratory breathing comfortably on room air, no wheezing/rhonchi/rales Cardiovascular irregular but not rapid Gastrointestinal (Abdomen) soft, non tender Musculoskeletal no edema Discharge Data Allergies Allergy/AdvReac Type Severity Reaction Status Date / Time Atalwia-BAW-JjR Reductase AdvReac Intermediate Unknown Unverified 12/15/21 15:17 Inhibitor [Hoolzoa-Xsk-Jyz Reductase Inhibitor] Consultations 12/15/21 15:05 ED Decision to Admit Stat 12/15/21 19:08 Consult Cardiology Routine Hospital Course (1) Elevated troponin: (2) SOB (shortness of breath): (3) Atrial fibrillation: (4) COVID-19: This is a 71-year-old male who has significant past medical history of persistent atrial fibrillation anticoagulated on warfarin, HLD, hypothyroidism, GERD, CKD stage III, history of thyroid cancer, IBS, presents to ED secondary to shortness of breath, chest pain and cough x1 day. Upon arrival, he was found to have atrial fibrillation with RVR and positive for covid 19 infection. CXR negative for pneumonia and he did not have evidence of hypoxia while being here. He did have significant diarrhea related to his Covid 19 infection, stool PCR was negative. He received imodium PRN with relieve of his diarrheal symptoms. At thte time of discharge, he no longer had diarrhea and was tolerating a regular diet. For his A fib, his toprol was increased to 75mg daily with improved HR control. He was continued on his coumadin and remained within therapeutic window while here. He will follow up with his Molecular Geneticist after discharge once he recovers from Covid to determine whether his BB dose can be reduced back to previous dose. While here, he had several episodes of epigastric "gas pain" which then causes him to feel short of breath (but again no hypoxia). Symptoms relieved with simethicone, pepcid, PPI and sitting upright. He has this chronically and reportedly had a recent normal EGD. He was encouraged to follow up with his PCP to discuss further these symptoms. Total Time Total Time Spent Total Time Spent (In Minutes): 40 Discharge Plan Discharge Items Patient Disposition: Home - Self-Care Reason For Visit: COVID+, SOB, AFIB Discharge Diagnosis: Covid 19 Infection Diarrhea related to Covid 19 Atrial Fibrillation with RVR Condition on Discharge: Good Activity: Resume your previous activity Non-emergency contact: Primary Care Provider and Molecular Geneticist Call non-emergency contact if: you have any medication questions and your symptoms worsen Follow-up/Referrals: Ajay Hamm, [Primary Care Provider] - Diet: Heart Healthy Addtl Attending Provider Instructions: Please monitor your oxygen levels at home. Goal is above 92% If you have worsening shortness of breath, or develop hypoxia (low oxygen levels), please return to the ER Please follow up with your family doctor about this gas pain that you have Your Metoprolol was increased to 75mg daily to help control your heart rate. Your heart rate is improved, please follow up with your Molecular Geneticist once you recover from Covid to decide if your metoprolol can be decreased back down again. Pending Studies at Discharge: No Stand-Alone Forms: My [facility], Smoking Cessation Medications and DC Order Prescriptions: New loperamide 2 mg Capsule 2 mg PO Q4 PRN (Reason: loose stool) 14 Days Qty: 30 RF: 0 metoprolol succinate 25 mg Tablet Extended Release 24 Hr 75 mg PO QAM 30 Days Qty: 90 RF: 0 fluticasone propionate 50 mcg/actuation [place],Suspension 1 spray NA BID 30 Days Qty: 1 RF: 0 Continued levothyroxine 112 mcg tablet 125 mcg PO QAM RF: 0 warfarin 5 mg Tablet 10 mg PO MOFR@1630 RF: 0 omeprazole 10 mg Capsule,Delayed Release(Dr/Ec) 10 mg PO DAILY PRN (Reason: Acid Reflux) RF: 0 warfarin 5 mg Tablet 7.5 mg PO SUTUWETHSA@1630 RF: 0 metoprolol succinate 25 mg tablet extended release 24 hr 25 mg PO BID RF: 0 Discharge Orders: Discharge Order (Routine); Ordered 12/18/21 Ordered By: Nam Aponte/Other Patient Handouts: COVID-19 Home Care Admission Data Admit Date/Time: 12/16/21 17:55 Attending Provider: Nam Singh Admit Provider: Omaira Plummer Primary Care Provider: Ajay Hamm Other Providers: Omaira Plummer ; Miguel Bergman Other Interventions: Discharge Summary Assessment (RN) Last Done: 12/18/21 15:20
--- NOTE | 2021-12-18 22:00 | Electrocardiogram Report ---
Test Reason : Blood Pressure : / mmHG Vent. Rate : 093 BPM Atrial Rate : 357 BPM P-R Int : 000 ms QRS Dur : 082 ms QT Int : 358 ms P-R-T Axes : 000 -46 052 degrees QTc Int : 445 ms Atrial fibrillation Left axis deviation Inferior infarct (cited on or before 16-DEC-2021) Abnormal ECG When compared with ECG of 16-DEC-2021 05:37, No significant change was found Confirmed by Edd Saul ([id number]) on 12/18/2021 9:59:44 PM Referred By: Ajay Hamm Confirmed By:Edd Saul
== END 2021-12-18 16:20 | disposition home or self-care (01) | DRG 178 ==
LOC: 2S 12:24 → ED 12:24 → SUATTDRO 15:46 → 2S 19:00